=== PATIENT | male | born 1950 | race African-American/Black ===

== ENCOUNTER 2020-07-07 10:55 | Inpatient (IN) | payer OTHER ==
[2020-07-05 23:30] VITALS: BP 107/90
[~2020-07-07] VITALS: Ht 182.9 cm; Wt 110.7 kg
[2020-07-07] VITALS (8 sets, daily range): BP systolic 108–140; BP diastolic 71–87
--- NOTE | ~2020-07-07 | EEG ---
[facility] [place] [address] [place] [address] ELECTROENCEPHALOGRAM Name: CHRISTIN MORGAN Room #: 243-P [facility] IN M.R.#: [id number] Admission: 07/07/20 Attend Phys: Pablito Granda MD Discharge: Date of : 52 Report #: [id number] THIS REPORT FOR: //name// CC: STEPHENIE physician/PCP Pablito Granda DATE OF SERVICE: 07/12/2020 FINDINGS: This patient is being evaluated for cardiac arrest. EEG was done by placing the electrode by standard 10-20 system of electrode placement. Both referential and sequential montages were used for recording. Background activity is low voltage and very poorly formed. This is probably 4-5 and less than 10 microvolts. A lot of artifact is present. Photic stimulation is unremarkable. Throughout the record, no active epileptiform activity was noticed. IMPRESSION: This is a severely abnormal EEG, which will be consistent with a diagnosis of encephalopathy. However, the EEG was done when the patient was on sedation, it will be desirable to do an EEG without sedation if the patient can be taken off sedation. Thank you very much for this referral. By: 1806 26 Matt Hill MD /nt
--- NOTE | ~2020-07-07 | EEG ---
[facility] [place] [address] [place] [address] ELECTROENCEPHALOGRAM Name: CHRISTIN MORGAN Room #: 243-P [facility] IN M.R.#: [id number] Admission: 07/07/20 Attend Phys: Pablito Granda MD Discharge: Date of : 52 Report #: [id number] THIS REPORT FOR: //name// CC: STEPHENIE physician/PCP Pablito Granda DATE OF SERVICE: 07/10/2020 This patient is being evaluated for cardiac arrest. EEG was done by placing the electrodes by standard 10-20 system of electrode placement. Both referential and sequential montages were used for recording. Background activity in this patient's EEG was difficult to determine initially. It was masked by a lot of artifact. Subsequently, paralyzing agent was given and sedation was stopped. At that time, the background activity appeared to be showing about 5-6 Hz and 15 microvolt. Activity is present, but is very slow. Photic stimulation is unremarkable. No active epileptiform activity was noticed. IMPRESSION: This is a severely abnormal EEG, which would be consistent with a diagnosis of encephalopathy. No active epileptiform activity was noticed. This patient will need serial EEGs to prognosticate this patient. Clinical correlation is recommended. Thank you very much for this referral. By: 11 22 Matt Hill MD /nt
--- NOTE | 2020-07-07 11:00 | NUR ---
STAFF PRESENT FOR CODE-MARY AILCE ADAMSON-BEAN SPROUT GROWER JEFFREY RN JAZMYNE RT MALA RT JAQUELIN EMT DR CHIKIS LUCIA
[2020-07-07 11:24] LABS: HEMATOCRIT 41.6 % (42.0-52.0); HEMOGLOBIN 13.1 gm/dL (14.0-18.0); MCH 27.2 pg (26.0-34.0); MCHC 31.4 g/dL (28.0-37.0); MCV 86.7 fL (80.0-100.0); PLATELET COUNT 252 thou/uL (150-400); RDW 13.6 % (10.5-14.5); WBC 21.3 thou/uL (4.0-11.0)
[2020-07-07 11:24] LABS: BE(vivo) -14.9 mmol/L (-2 to +3); HCO3 12.8 mmol/L (22.0-26.0); PCO2 36.3 mmHg (35.0-45.0); PO2 396.7 mmHg (80.0-100.0); sO2 99.7 % (92.0-98.0)
[2020-07-07 11:26] LABS: pH 7.164 (7.360-7.450)
--- NOTE | 2020-07-07 11:49 | NUR ---
CARDIOLOGY IN AND PT TAKEN FROM CT TO POACHER OPERATOR. REPORT GIVEN TO UCHE AUGUST
[2020-07-07 12:03] LABS: APTT 30.8 Seconds (24.5-32.8); CALCIUM 8.3 mg/dL (8.5-10.1); CREATININE 2.3 mg/dL (0.7-1.3); INR 1.1; POTASSIUM 3.8 mmol/L (3.5-5.1); PROTIME 11.3 Seconds (9.3-11.4)
[2020-07-07 12:14] LABS: ALBUMIN 3.5 g/dL (3.4-5.0); DIRECT BILIRUBIN 0.1 mg/dL (<0.1-0.2); TOTAL BILIRUBIN 0.4 mg/dL (0.2-1.0); TOTAL PROTEIN 7.5 g/dL (6.4-8.2)
[2020-07-07 12:15] LABS: TROPONIN-I 3.63 ng/mL (<0.06)
[2020-07-07 12:25] LABS: ABSOLUTE NEUTROPHILS 12.4 thou/uL (1.4-8.2); PLATELET ESTIMATE NORMAL
--- NOTE | 2020-07-07 13:11 | HC ---
[facility] [address] [place] [address] CONSULTATION Name: MALA WALLER Room #: 160-1 ADM IN M.R.#: [id number] Admission: 07/07/20 Attend Phys: Pablito Granda MD Discharge: Date of : 52 Report #: [id number] THIS REPORT FOR: cc: FAM - No family physician/PCP FAM - No family physician/PCP Adalberto Garcia MD ~ DATE OF SERVICE: 07/07/2020 HISTORY OF PRESENT ILLNESS: History is obtained from the Emergency Room physician and from family. Apparently, a 70-year-old gentleman who denies any prior history of coronary artery disease, injured his back on Thursday, was at work. He did not feel well at work and presented home where the family heard a large sound and found him unresponsive, face down. When they rolled him over, they stated "his eyes were out." The patient's family began CPR and EMS arrived and found him in a fine ventricular fibrillation and he was shocked x 2. He subsequently was administered a subsequent shock when V-tach was obtained and he was in PEA without spontaneous respiration. CPR continued throughout transfer and presented to the Emergency Room where ACLS protocol ensued. Prior to his presentation to the Emergency Room, had a total of 7 doses of intravenous IV push epinephrine. Continued resuscitation was obtained and a pressure was established in the Emergency Room. Consultation was obtained when ECG demonstrated what appears to be diffuse anterolateral wall ST-segment elevation with tombstoning on ECG. Upon examination, the patient is intubated on propofol, unresponsive and having significant twitching, suggestive of seizure activity. PAST MEDICAL HISTORY: Unremarkable except for the back injury previously stated. ALLERGIES: No known drug allergies. PAST SURGICAL HISTORY: Reviewed from family noncontributory. Electrocardiogram: Sinus tachycardia, diffuse ST-segment elevation in the anterolateral leads. Laboratory noted acidotic on presentation, being optimized and treated by ER physician. Remaining laboratories are pending. REVIEW OF SYSTEMS: Not obtainable. PHYSICAL EXAMINATION: GENERAL: Well-developed male who is in extremis, intubated and having [facility] [address] [place] [address] CONSULTATION Name: MALA WALLER Room #: 160-1 ADM IN M.R.#: [id number] Admission: 07/07/20 Attend Phys: Pablito Granda MD Discharge: Date of : 52 Report #: [id number] seizure-like activity. LUNGS: Bilaterally clear. CARDIAC: Regular. No murmurs or rubs noted. EXTREMITIES: Without edema. IMPRESSION: Sudden cardiac , etiology likely arrhythmic in nature with acute myocardial infarction in present ECG. Discussed with the family and spouse the high likelihood of poor outcomes for which the patient's family stated "will do everything we need to do." The risks, complications and alternatives were discussed once again. Proceeding to the cath lab radiological technologist for emergent catheterization to determine whether there is any coronary vascular etiology that can be treated. <ELECTRONICALLY SIGNED> By: Adalberto Garcia MD 07/07/20 1311 1137 1205 Adalberto Garcia MD /nt
--- NOTE | 2020-07-07 15:30 | NUR ---
PATIENT ARRIVED TO THE UNIT FROM DISEASE EDUCATION SPECIALIST AT 1317. GROIN SITE IN TACT, SOFT NO DRAINAGE. PATIENT ON ANGIOMAX. RT AT BEDSIDE WITH 2 RN. PATIENT TRANSFERRED TO ICU BED. VS WNL AT THIS TIME. HYPOTHERMIA STARTED AT 1345. AT 1500, AT WINDOW. RN EXPLAINING TO HER POC. JESSI FLORES, GIVING HER THE CODE TO ACCESS THE PATIENTS'S INFORMATION. AT 1530, DR. ALMENDAREZ AT THE BEDSIDE. NO NEW ORDERS OF NOW. JESSI RODRIGUEZ NURSE AT BEDSIDE PLACEING CENTRAL LINE MEDICAL NECESSITY TO BE SIGNED PER DR. PYLE.
[2020-07-07 15:55] LABS: BE(vivo) -4.7 mmol/L (-2 to +3); HCO3 18.9 mmol/L (22.0-26.0); PCO2 31.5 mmHg (35.0-45.0); PO2 249.6 mmHg (80.0-100.0); pH 7.397 (7.360-7.450); sO2 99.6 % (92.0-98.0)
--- NOTE | 2020-07-07 17:30 | NUR ---
CONSULTED TO PLACE A STAT CENTRAL LINE FOR A PATIENT POST CODE. ORDER NOTED AND CONSENT PER MEDICAL NECESSITY/DR. PYLE. THE RIGHT JUGULAR WAS WIDLEY PATENT. A #6F TRIPLE LUMEN CENTRAL LINE WAS PLACED. LINE WAS 25CM AND ADVANCED WITHOUT DIFFICULTY. A STAT CHEST XRAY CONFIRMED THE LINE IN GOOD POSITION FOR USE
[2020-07-07 17:32] LABS: ABSOLUTE NEUTROPHILS 15.1 thou/uL (1.4-8.2); EOSINOPHILS 0.1 % (0.0-3.0); HEMATOCRIT 40.3 % (42.0-52.0); HEMOGLOBIN 13.1 gm/dL (14.0-18.0); LYMPHOCYTES 5.3 % (24.0-44.0); MCH 27.5 pg (26.0-34.0); MCHC 32.4 g/dL (28.0-37.0); MCV 84.9 fL (80.0-100.0); MONOCYTES 8.3 % (1.0-8.0); PLATELET COUNT 287 thou/uL (150-400); POLYS 86.3 % (36.0-66.0); RBC 4.75 mil/uL (4.50-6.00); RDW 13.3 % (10.5-14.5); WBC 17.5 thou/uL (4.0-11.0)
[2020-07-07 17:42] LABS: FIBRINOGEN 339.7 mg/dL (210-360)
[2020-07-07 17:50] LABS: D-DIMER 31.03 ug/mLFEU (0.19-0.50)
[2020-07-07 17:57] LABS: CALCIUM 8.3 mg/dL (8.5-10.1); CREATININE 2.2 mg/dL (0.7-1.3); MAGNESIUM 2.3 mg/dL (1.8-2.4); POTASSIUM 4.2 mmol/L (3.5-5.1)
[2020-07-07 17:59] LABS: TROPONIN-I 53.97 ng/mL (<0.06)
[2020-07-08] VITALS (32 sets, daily range): BP systolic 91–144; BP diastolic 30–90
[2020-07-08 00:45] LABS: ABSOLUTE NEUTROPHILS 13.7 thou/uL (1.4-8.2); BASOPHILS 0.1 % (0.0-2.0); HEMATOCRIT 38.2 % (42.0-52.0); HEMOGLOBIN 12.3 gm/dL (14.0-18.0); LYMPHOCYTES 9.1 % (24.0-44.0); MCH 27.3 pg (26.0-34.0); MCHC 32.2 g/dL (28.0-37.0); MCV 84.8 fL (80.0-100.0); MONOCYTES 7.9 % (1.0-8.0); PLATELET COUNT 272 thou/uL (150-400); POLYS 82.9 % (36.0-66.0); WBC 16.5 thou/uL (4.0-11.0)
[2020-07-08 01:11] LABS: CALCIUM 6.4 mg/dL (8.5-10.1); CREATININE 1.4 mg/dL (0.7-1.3); MAGNESIUM 2.8 mg/dL (1.8-2.4)
[2020-07-08 01:13] LABS: POTASSIUM 2.8 mmol/L (3.5-5.1); TROPONIN-I 66.57 ng/mL (<0.06)
[2020-07-08 04:57] LABS: BE(vivo) -7.7 mmol/L (-2 to +3); HCO3 16.3 mmol/L (22.0-26.0); PCO2 29.6 mmHg (35.0-45.0); PO2 292.5 mmHg (80.0-100.0); sO2 99.7 % (92.0-98.0)
[2020-07-08 07:02] LABS: ABSOLUTE NEUTROPHILS 9.3 thou/uL (1.4-8.2); BASOPHILS 0.1 % (0.0-2.0); HEMATOCRIT 37.9 % (42.0-52.0); HEMOGLOBIN 12.1 gm/dL (14.0-18.0); LYMPHOCYTES 13.5 % (24.0-44.0); MCH 27.1 pg (26.0-34.0); MCHC 31.9 g/dL (28.0-37.0); MONOCYTES 5.4 % (1.0-8.0); PLATELET COUNT 252 thou/uL (150-400); RBC 4.47 mil/uL (4.50-6.00); RDW 13.6 % (10.5-14.5); WBC 11.4 thou/uL (4.0-11.0)
[2020-07-08 07:08] LABS: CALCIUM 7.8 mg/dL (8.5-10.1); CREATININE 1.5 mg/dL (0.7-1.3); POTASSIUM 3.9 mmol/L (3.5-5.1)
[2020-07-08 07:16] LABS: ALBUMIN 3.1 g/dL (3.4-5.0); CHOLESTEROL 155 mg/dL (<200); HDL CHOLESTEROL 33 mg/dL (>40); LDL CHOLESTEROL 91 mg/dL (<100); TC:HDL 4.7 Ratio (Not establshd); TOTAL BILIRUBIN 0.2 mg/dL (0.2-1.0); TOTAL PROTEIN 6.5 g/dL (6.4-8.2); TRIGLYCERIDE 155 mg/dL (<150); VLDL 31 mg/dL (<40)
[2020-07-08 07:22] LABS: MAGNESIUM 1.9 mg/dL (1.8-2.4)
[2020-07-08 08:08] LABS: TROPONIN-I 50.1 ng/mL (<0.06)
--- NOTE | 2020-07-08 09:50 | NUR ---
NEUROLOGIST AT BEDSIDE AROUND 0815 THIS MORNING. ASSESSMENT DONE, NO NEW ORDERS AT THIS TIME. AT 0949, KIMBERLEY, PATIENT;S SISTER CALLING TO GET AN UPDATED. CODE VERIFIED. SISTER UPDATED ADBOUT PATIENT CURRENT STATUS AND POC.
[2020-07-08 14:40] LABS: ABSOLUTE NEUTROPHILS 8.6 thou/uL (1.4-8.2); BASOPHILS 0.1 % (0.0-2.0); HEMATOCRIT 38.8 % (42.0-52.0); HEMOGLOBIN 12.6 gm/dL (14.0-18.0); LYMPHOCYTES 10.3 % (24.0-44.0); MCH 27.7 pg (26.0-34.0); MCHC 32.4 g/dL (28.0-37.0); MCV 85.3 fL (80.0-100.0); MONOCYTES 7.3 % (1.0-8.0); PLATELET COUNT 249 thou/uL (150-400); POLYS 82.3 % (36.0-66.0); RBC 4.55 mil/uL (4.50-6.00); RDW 13.3 % (10.5-14.5); WBC 10.5 thou/uL (4.0-11.0)
[2020-07-08 14:57] LABS: CALCIUM 8.1 mg/dL (8.5-10.1); CREATININE 1.4 mg/dL (0.7-1.3); MAGNESIUM 2.9 mg/dL (1.8-2.4); POTASSIUM 3.1 mmol/L (3.5-5.1)
[2020-07-08 15:22] LABS: TROPONIN-I 77.54 ng/mL (<0.06)
[2020-07-09] VITALS (84 sets, daily range): BP systolic 89–149; BP diastolic 48–108
[2020-07-09 03:31] LABS: BE(vivo) -8.9 mmol/L (-2 to +3); HCO3 16.8 mmol/L (22.0-26.0); PCO2 35.9 mmHg (35.0-45.0); PO2 142.9 mmHg (80.0-100.0); pH 7.289 (7.360-7.450); sO2 98.6 % (92.0-98.0)
[2020-07-09 06:28] LABS: HEMOGLOBIN 11.9 gm/dL (14.0-18.0); MCH 27.8 pg (26.0-34.0); MCHC 32.9 g/dL (28.0-37.0); MCV 84.5 fL (80.0-100.0); RBC 4.26 mil/uL (4.50-6.00); RDW 13.4 % (10.5-14.5)
[2020-07-09 06:37] LABS: CALCIUM 7.6 mg/dL (8.5-10.1); CREATININE 1.2 mg/dL (0.7-1.3)
[2020-07-09 06:40] LABS: POTASSIUM 4.3 mmol/L (3.5-5.1)
--- NOTE | 2020-07-09 07:36 | EKG ---
[facility] [address] [place] [address] ELECTROCARDIOGRAM REPORT Name: CHRISTIN MORGAN MALA Room #: 243-P ADM IN M.R.#: [id number] Admission: 07/07/20 Attend Phys: Pablito Granda MD Discharge: Date of : 52 Report #: [id number] THIS REPORT FOR: cc: STEPHENIE - No family physician/PCP FAM - No family physician/PCP Yomi Eng MD [facility] ~ THIS REPORT FOR: //name// [facility] Test Date: 2020-07-08 Test Time: 17:35:41 Pat Name: CHRISTIN MORGAN Department: Room: 243 P Gender: M Travel Freight And Passenger Agent: MADHU : 1950 Requested By: Adalberto Garcia Order Number: [id number] MD: Yomi Eng Measurements Intervals [place] Rate: 101 P: 52 CO: 144 QRS: -3 QRSD: 106 T: 71 QT: 394 QTc: 511 Interpretive Statements Sinus tachycardia Anterolateral infarct, acute (LAD) Prolonged QT interval Compared to ECG 07/07/2020 11:06:36 Prolonged QT interval now present Myocardial infarct finding still present Electronically Signed On 07-09-2020 7:35:54 REPORTING DEVELOPER by Yomi Eng [email or web address] <ELECTRONICALLY SIGNED> By: Yomi Eng MD, FACC 07/09/20 0735 1735 1735 Yomi Eng MD, FACC /EPI
--- NOTE | 2020-07-09 08:22 | EKG ---
[facility] [address] [place] [address] ELECTROCARDIOGRAM REPORT Name: CHRISTIN MORGAN Room #: 243-P ADM IN M.R.#: [id number] Admission: 07/07/20 Attend Phys: Pablito Granda MD Discharge: Date of : 51 Report #: [id number] THIS REPORT FOR: cc: FAM - No family physician/PCP FAM - No family physician/PCP Eris Aquino MD [facility] ~ THIS REPORT FOR: //name// [facility] ED Test Date: 2020-07-07 Test Time: 11:06:36 Pat Name: CHRISTIN MORGAN Department: Room: 243 Gender: M Production Operations Inspector: MARIAN : 1950 Requested By: Niall Gonzalez Order Number: [id number] MD: Eris Aquino Measurements Intervals [place] Rate: 115 P: 89 MA: 108 QRS: -33 QRSD: 102 T: -29 QT: 324 QTc: 448 Interpretive Statements Sinus tachycardia Probable left atrial enlargement Anterolateral infarct, acute (LAD) No previous ECG available for comparison Electronically Signed On 07-09-2020 8:22:12 CENTRAL SUPPLY CLERK by Eris Aquino [email or web address] <ELECTRONICALLY SIGNED> By: Eris Aquino MD, [facility] 07/09/20 0822 1106 1106 Eris Aquino MD, [facility] /EPI
--- NOTE | 2020-07-09 11:15 | 2DMMODE ---
[facility] [place] [address] 2 D/M-MODE ECHOCARDIOGRAM Name: CHRISTIN MORGAN Room #: 243-P ADM IN M.R.#: [id number] Admission: 07/07/20 Attend Phys: Pablito Granda MD Discharge: Date of : 52 Report #: [id number] THIS REPORT FOR: cc: FAM - No family physician/PCP FAM - No family physician/PCP Yomi Eng MD [facility] ~ APPROVED REPORT Study performed: 07/09/2020 10:31:37 EXAM: Comprehensive 2D, Doppler, and color-flow Echocardiogram Patient Location: ER Room #: 243 Status: routine BSA: 2.34 HR: 118 bpm BP: 114/65 mmHg Rhythm: Tachycardia Other Information Study Quality: Fair/poor parasternal windows Technically limited study due to patient on vent, no mobility, warming system on. Indications STEMI status post PCI. Vtach/Code. 2D Dimensions RVDd: 39.49 mm IVSd: 12.56 (7-11mm) LVDd: 50.07 mm PWd: 10.25 (7-11mm) LVDs: 40.55 (25-40mm) Volumes Left Atrial Volume (Systole) Single Plane 4CH: 36.52 mL Single Plane 2CH: 40.97 mL Aortic Valve AoV Peak Don.: 1.24 m/s AO Peak Gr.: 6.16 mmHg LVOT Max P.22 mmHg LVOT Max V: 0.90 m/s Mitral Valve [facility] [address] [address] 2 D/M-MODE ECHOCARDIOGRAM Name: CHRISTIN MORGAN MALA Room #: 243-P [facility] IN .R.#: [id number] Admission: 07/07/20 Attend Phys: Pablito Granda, Discharge: Date of : 52 Report #: [id number] MV Decel. Time: 83.81 ms MV E Max Don.: 0.94 m/s Tricuspid Valve TR Peak Don.: 2.30 m/s RAP Estimate: 15.00 mmHg TR Peak Gr.: 21.16 mmHg PA Pressure: 36.00 mmHg Left Ventricle The left ventricle is normal size. Mild concentric left ventricular hypertrophy. Left ventricular systolic function is severely decreased. LVEF is 25-30%. This study is not technically sufficient to allow evaluation of the LV diastolic function. Right Ventricle The right ventricle is normal size. The right ventricular systolic function is low normal. Atria The left atrium size is normal. The right atrium size is normal. Aortic Valve The aortic valve is not well visualized. No aortic regurgitation is present. There is no aortic valvular stenosis. Mitral Valve The mitral valve is normal in structure. Trace mitral regurgitation. No evidence of mitral valve stenosis. Tricuspid Valve The tricuspid valve is normal in structure. Trace tricuspid regurgitation. Estimated PAP is 35mmHg. Great Vessels Aortic root is not well visualized. IVC is dilated and collapses <50% with inspiration. Pericardium There is no pericardial effusion. <Conclusion> Normal left atrial size as well as wall thickness Global hypokinesis more prominent in the anterior wall, ejection fraction -25% Normal right ventricular size, low normal RV systolic [facility] [address] [place] [address] 2 D/M-MODE ECHOCARDIOGRAM Name: EDDIECHRISTINSABINA MEDEIROS Room #: 243-P [facility] IN [facility]#: [id number] Admission: 07/07/20 Attend Phys: Pablito Granda, Discharge: Date of : 52 Report #: [id number] Normal atrial size Normal aortic/mitral valve structure and function Trace of tricuspid valve insufficiency, PA pressure systolic estimated 35 mmHg No evidence of pericardial effusion <ELECTRONICALLY SIGNED> By: Yomi Eng MD, FACC 07/09/204 13 13 Yomi Eng MD, FACC /INF
--- NOTE | 2020-07-09 14:31 | NUR ---
chart review. unable to visit with taras umana on vent. noted and sister has been updated by bedside nurse. will cont following as needed for dc needs.
--- NOTE | 2020-07-09 20:10 | NUR ---
Spoke with granddaugther and today, updated them on patient condition. He has warmed and sedation titration was started, but he began to seize. ATivan 2 mg given with good results and Dr. Hill notified.
[2020-07-10] VITALS (79 sets, daily range): BP systolic 94–157; BP diastolic 52–95
[2020-07-10 01:25] LABS: URINE BILIRUBIN NEGATIVE (Negative); URINE BLOOD 3+ (Negative); URINE CLARITY SL CLOUDY; URINE COLOR YELLOW; URINE GLUCOSE-RANDOM* NEGATIVE (Negative); URINE KETONES NEGATIVE (Negative); URINE LEUKOCYTES-REFLEX NEGATIVE (Negative); URINE PROTEIN (DIPSTICK) TRACE (Negative); URINE SPECIFIC GRAVITY >= 1.030 (1.005-1.035); URINE UROBILINOGEN 0.2 E.U./dl (0.2-1.0)
[2020-07-10 01:44] LABS: URINE NITRITE-REFLEX POSITIVE (Negative)
[2020-07-10 01:47] LABS: BACTERIA-REFLEX >30 Many /HPF (None Seen); CELLULAR CASTS 0-3 Few /LPF (None Seen); MUCUS 4-6 Moderate strn/LPF (None Seen); SQUAMOUS 0-3 Few /LPF (0-3); URINE RBC 3-10 Few /HPF (0-2); URINE WBC-REFLEX 0-5 Rare /HPF (0-5)
[2020-07-10 01:48] LABS: URIC ACID CRYSTALS >10 Many /LPF (None Seen)
[2020-07-10 04:37] LABS: BE(vivo) -1.1 mmol/L (-2 to +3); HCO3 23.1 mmol/L (22.0-26.0); PCO2 36.8 mmHg (35.0-45.0); PO2 103.6 mmHg (80.0-100.0); pH 7.416 (7.360-7.450); sO2 97.8 % (92.0-98.0)
[2020-07-10 04:58] LABS: BASOPHILS 0.1 % (0.0-2.0); EOSINOPHILS 0.1 % (0.0-3.0); HEMOGLOBIN 10.9 gm/dL (14.0-18.0); LYMPHOCYTES 17.4 % (24.0-44.0); MCH 27.8 pg (26.0-34.0); MCV 84.3 fL (80.0-100.0); MONOCYTES 4.2 % (1.0-8.0); PLATELET COUNT 191 thou/uL (150-400); POLYS 78.2 % (36.0-66.0); RBC 3.91 mil/uL (4.50-6.00); RDW 13.7 % (10.5-14.5); WBC 6.4 thou/uL (4.0-11.0)
[2020-07-10 05:29] LABS: ALBUMIN 2.4 g/dL (3.4-5.0); CALCIUM 7.6 mg/dL (8.5-10.1); CREATININE 1.1 mg/dL (0.7-1.3); POTASSIUM 4.1 mmol/L (3.5-5.1); TOTAL BILIRUBIN 0.4 mg/dL (0.2-1.0); TOTAL PROTEIN 6.1 g/dL (6.4-8.2)
--- NOTE | 2020-07-10 05:32 | NUR ---
ASSUMED CARE 1900. PT MAINTAINED ON VERSED, FENTANYL, PROPOFOL, LEVOPHED, AND NS DRIPS. ARCTIC SUN IN PLACE, OVERNIGHT BODY TEMPS 36-37 DEG C FROM URINARY CATHETER AND RECTAL PROBES. SPOKE W/ PT'S , UPDATED HER ABOUT SEIZURE ACTIVITY ON DAY SHIFT; TEARFUL, SAID SHE WOULD ASK HER ORDER TAKERS SUPERVISOR TO CALL/GIVE HER THE CODE SO SHE COULD TALK WITH STAFF ABOUT PT CONDITION THEN EXPLAIN IT BACK TO WHILE HELPING KEEP HER CALM. SMALL CLOTS AND SEDIMENT BUILT UP IN MATIAS LINE, FLUSHED OUT WELL WITH 150 ML SALINE AND WASTED SAME AMOUNT OF URINE. WILL CONTINUE TO MONITOR.
--- NOTE | 2020-07-10 14:30 | NUR ---
AND SISTER UPDATED ON PT CONDITION THIS AM. DR. ALMENDAREZ TALKED TO GARY ABOUT PT NEUROLOGICAL CONDITION TODAY.
[2020-07-11] VITALS (71 sets, daily range): BP systolic 81–149; BP diastolic 45–87
[2020-07-11 04:13] LABS: BE(vivo) -1.3 mmol/L (-2 to +3); HCO3 23.5 mmol/L (22.0-26.0); PCO2 39.6 mmHg (35.0-45.0); pH 7.391 (7.360-7.450); sO2 95.2 % (92.0-98.0)
[2020-07-11 06:48] LABS: ALBUMIN 2.1 g/dL (3.4-5.0); CALCIUM 7.3 mg/dL (8.5-10.1); CREATININE 1.2 mg/dL (0.7-1.3); POTASSIUM 4.5 mmol/L (3.5-5.1); TOTAL BILIRUBIN 0.8 mg/dL (0.2-1.0); TOTAL PROTEIN 5.1 g/dL (6.4-8.2)
--- NOTE | 2020-07-11 09:26 | NUR ---
PT NOW NORMOTHERMIC, NO COUGH/GAG, NO MOVEMENTS NOTED. DC VERSED. AMD LOWER FENTANYL.CONT PLAN OF CARE. NOT PROGRESSING TOWARD GOALS. MRI PLANNED SUDHAKAR STABLE
[2020-07-11 12:43] LABS: HEMATOCRIT 29.5 % (42.0-52.0); HEMOGLOBIN 9.6 gm/dL (14.0-18.0); MCH 27.8 pg (26.0-34.0); MCHC 32.6 g/dL (28.0-37.0); MCV 85.2 fL (80.0-100.0); PLATELET COUNT 174 thou/uL (150-400); RBC 3.47 mil/uL (4.50-6.00); RDW 14.3 % (10.5-14.5)
--- NOTE | 2020-07-11 12:51 | NUR ---
ASSUMED CARE OF PATIENT AT 0600. PATIENT ON MINIMAL VENTILATOR SETTINGS WHILE ON MY SHIFT. NO SIGNS OF DISTRESS ARE NOTED AT THIS TIME. THE PATIENT DOES HAVE A COUGH AND GAG. A MODERATE AMOUNT OF SECRETIONS ARE BEING SUCTIONED FROM THE PATIENT.
[2020-07-11 14:10] LABS: ABSOLUTE NEUTROPHILS 3.3 thou/uL (1.4-8.2); PLATELET ESTIMATE NORMAL
--- NOTE | 2020-07-11 18:45 | NUR ---
NO GAG, NO CORNEAL, PUPILS SEVERLY SLUGGISH TO NON REACTION, NO WITHDRAWAL TO PAINFUL STIMULI. FENTANYL TITRATED DOWN FROM 75 MCG TO STANDBY AT 1800, NO SEIZURE ACTIVITY NOTES. FIO2 .30, PEEP 5. LEVOPHED AT 11MCG. THIS RN SPOKE WITH TWICE AND SISTER ONCE TODAY. DR. MOE SPOKE WITH THIS EVENING AND SAID WHEN WE GET SEDATION OFF, WILL REPEAT EEG AND GET MRI.
--- NOTE | 2020-07-11 23:37 | CATHLAB ---
[facility] [place] [address] [place] [address] INVASIVE PROCEDURE REPORT Name: CHRISTIN MORGAN Room #: 243-P ADM IN M.R.#: [id number] Admission: 07/07/20 Attend Phys: Pablito Granda MD Discharge: Date of : 52 Report #: [id number] THIS REPORT FOR: cc: FAM - No family physician/PCP FAM - No family physician/PCP Adalberto Garcia MD ~ APPROVED REPORT Study performed: 07/07/2020 12:00:07 Patient Details Patient Status: In-Patient Room #: The patient is a 70 year-old male Event Personnel Adalberto Garcia Piece Worker, Gloria Joya RN RN, Massiel Warren Monitor, Luz Smith RTR Scrub Procedures Performed Art Access - R femoral artery* Left Heart Cath w/or w/o Coronaries [id number] [facility] JOSE M Revasc AMI Total/Sub Single LAD C9606 AMIREVSING Hemostasis w/ Mynx, supervision of conscious sedation Indication STEMI (>0 to less than or equal to 6 hours) Procedure Narrative The patient was brought emergently to the Cardiac Catheterization Laboratory and was prepped and draped in a sterile manner. The Right Groin^ was infiltrated with 1% Lidocaine subcutaneous anesthesia. A PINNACLE 6FR Sheath #[id number] sheath was inserted into the RFA^. Coronary angiography was performed using coronary diagnostic catheters. The right coronary system was accessed and visualized with a JR 4 catheter. The left coronary system was accessed and visualized with a LAUNCHER 6FR JL4 #[id number] catheter. Closure device was deployed with a 6 Fr Mynx. The patient tolerated the procedure well and there were no complications associated with the procedure. There was no hematoma. Fluoro Time: 8.42 minutes Dose: DAP 6919.00 cGycm2 1017 mGy Contrast Type and Amount: Visipaque 170 ml [facility] [address] INVASIVE PROCEDURE REPORT Name: CHRISTIN MORGAN Room #: 243-P [facility]#: [id number] Admission: 07/07/20 Attend Phys: Pablito Granda, Discharge: Date of : 52 Report #: [id number] Coronary Angiography The patient's coronary anatomy is right dominant. Diagnostic Cath Left Main Large caliber vessel of normal origin bifurcates into a LAD and LCX arteries. The LM has luminal irregularities but no significant high grade lesions. LAD Moderate to large caliber vessel with a 30% concentric proximal lesion after which a small first diagonal vessel arises. The LAD proper is then totally occluded with LUIS 0 flow. Post dilatation and stenting of the proximal mid LAD the vessel is a Type II vessel with essentially no significant lesions Diagonal 1 small caliber vessel coursing along the anterolateral wall with a concentric 50% lesion in its mid portion. This is not flow limiting. Diagonal 2 small insignificant caliber vessel arising from the center of involved LAD and with a 50% ostial lesion Circumflex Moderate to large caliber vessel giving rise to several marginal branches as it courses posteriorly to terminate as small posterior wall marginal vessels OM1 moderate caliber vessel coursing laterally and rapidly tapering with no highgrade lesions but luminal irregularities. OM2 small caliber vessel OM3 moderate to large caliber posterior wall vessel without significant lesions noted Right Coronary Moderate caliber vessel of normal origin with mild luminal irregulatities noted until the acute margin where ther is a concentric lesion of 60-70% without flow limitation. The RCA continues after giving rise to smal RV branches to the crux of the heart whe a small to moderate caliber PDA originates with only mild plaqueing noted The RCA then terminates as a small insignificant posterior wall vessel. R PDA small caliber vessel without highgrade obstructive lesions. Left Ventriculography Left Ventriculography was not performed. Hemodynamics The aortic pressure is 104/69 mmHg with a mean of 83 mmHg. PCI Technique In view of the presentation and ECG findings a 6 upper sor[address] system was in place. A JL4 guide was utilized to image the vessel and proceed directly to PCI. 0.014 floppy tipped wire was advanced beyond the [facility] [address] [place] [address] INVASIVE PROCEDURE REPORT Name: CHRISTIN MORGAN Room #: 243-P [facility] IN M.R.#: [id number] Admission: 07/07/20 Attend Phys: Pablito Granda, Discharge: Date of : 52 Report #: [id number] occluded portion but unable to advance distally. a 3-0 PCI ballon was then loaded and advanced where multiple inflations were obtained to estalish flow. Subsequently the wire was repositioned into the distal LAD. The pci balloon was exchanged for the stent balloon and subsequent deployment ensued. Utilizinf the same balloon post deployment dilations were performed to taper the stent to the vessel taper. No loss od side branch, distal embolization or intraluminal disruptions noted. LUIS 3 flow present post procedure. No complications. The patient was sedated and ventillated throughout the procedure. Transfer to the ICU for post stent care and Hypothermia protocol. PCI Technique Lesion Percutaneous coronary intervention was performed on the proximal left anterior descending artery segment. A LAUNCHER 6FR JL4 #[id number] Guide Catheter was used to engage the ostium. A Luge Wire .014 x 182CM #[id number] Interventional Guidewire was used to cross the lesion. BALLOON DILATION A Balloon catheter Euphora RX 3.0 x 12 #[id number] was inserted and inflated up to 10.00atm for 21seconds. Additional Inflation: 8.00atm for 10seconds. Additional Inflation: 18.00atm for 15seconds. STENT DEPLOYMENT A drug-eluting stent RESOLUTE PRATEEK RX 3.5 X 18 #[id number] was inserted and inflated up to 12.00atm for 10seconds. Additional Inflation: 16.00atm for 10seconds. Conclusion 1. Coronary artery disease severe consisting of a 60-70% proximal -mid RCA and a toally occluded proximal mid LAD 2. Successful Percutaneous revascularization with PCI/Stent utilizing JOSE M [employer] stent 3. Stable Hemodynamics 4.Hypoxic encephalopathy with seizure activity preprocedure on medications per ER/Primary physicians Recommendations Daily ASA with Plavix for at least one year Medical Therapy [address] [address] INVASIVE PROCEDURE REPORT Name: CHRISTIN MORGAN Room #: 243-P ADM IN M.R.#: [id number] Admission: 07/07/20 Attend Phys: Pablito Granda, Discharge: Date of : 52 Report #: [id number] plavix to be given upon arrival to icu through OG tube ( not present in ccl ) and before bivilirubin infusion completes <ELECTRONICALLY SIGNED> By: Adalberto Garcia MD 07/11/202336 Myrtle 36 Adalberto Garcia MD /INF
[2020-07-12] VITALS (52 sets, daily range): BP systolic 99–160; BP diastolic 61–94
--- NOTE | 2020-07-12 01:48 | NUR ---
assumed care at change of shift, assessments as charted, sr/st on the monitor, at 2250 updated about the patient, asking about brain ,told as per drs note more time needed and repeat eeg and ct or mri tomorrow, noted no urine output dayron lares, flushed the lares with no success, bladder scanned with 739 residual, lares catheter changed with an output of 800cc, bs stable at 99, vss, pus like secretion noted from the right nares, suctioned, will continue to monitor
[2020-07-12 05:08] LABS: BE(vivo) -3.3 mmol/L (-2 to +3); HCO3 21.6 mmol/L (22.0-26.0); PCO2 38.1 mmHg (35.0-45.0); PO2 66.8 mmHg (80.0-100.0); pH 7.371 (7.360-7.450); sO2 92.9 % (92.0-98.0)
[2020-07-12 05:58] LABS: HEMOGLOBIN 10.2 gm/dL (14.0-18.0); MCH 27.8 pg (26.0-34.0); MCHC 32.9 g/dL (28.0-37.0); MCV 84.5 fL (80.0-100.0); PLATELET COUNT 201 thou/uL (150-400); RBC 3.67 mil/uL (4.50-6.00); RDW 14.3 % (10.5-14.5)
[2020-07-12 06:25] LABS: ALBUMIN 1.9 g/dL (3.4-5.0); CREATININE 1.3 mg/dL (0.7-1.3); POTASSIUM 4.6 mmol/L (3.5-5.1); TOTAL BILIRUBIN 0.9 mg/dL (0.2-1.0); TOTAL PROTEIN 6.1 g/dL (6.4-8.2)
[2020-07-12 09:14] LABS: METAMYELOCYTES 1 %; MYELOCYTES 1 %
[2020-07-12 09:15] LABS: ANISOCYTOSIS 1+
--- NOTE | 2020-07-12 19:14 | NUR ---
ASSUMED CARE OF PT AT 0700, PT IS A GCS OF 3. CONT ON SEDATION WITH FENT AND PROPOFO FOR VENT MANAGEMENT. PT VSS. PT HAS BEEN FEBRILE ANDHOSPITALIST NOTIFIED. EEG DONE THIS MORNING. FAMILY HAS BEEN UPDATED ON PT CONDITION. PT RESTING AT THIS TIME WITH EYES CLOSED.
[2020-07-13] VITALS (136 sets, daily range): BP systolic 95–155; BP diastolic 60–90
--- NOTE | 2020-07-13 05:09 | NUR ---
PATIENT WAS BREATH STACKING AND BUCKING THE VENT WHEN I CAME ON. PATIENT'S PROPOFOL AND FENTANYL WERE TITRATED UNTIL PATIENT WAS NO LONGER BREATH STACKING. PATIENT RESTED WELL LAST NIGHT WITH NO OTHER ACUTE PROBLEMS AT THIS TIME.
--- NOTE | 2020-07-13 09:47 | NUR ---
Nutrition: Pt now NPO x 6 days. No nutrition started but care continues. REC Start Vital AF to reach 50 mL/hr if Feeding pump available. Otherwise suggest Vital HP 5 cartons daily via gravity drip.
--- NOTE | 2020-07-13 14:24 | NUR ---
chart review. unable to visit with taras rt remains on vent. arun visited with porsche via phone call, she requested to have md call here again rt some question, cm sent referral to med assist rt question about medicaid. " he has red white and blue card but not any other cards for insurance. thank you for checking on me, i go to [employer] and i have friend sitting with me at home so can try keep my mind ok. would like to face time and see taras face please. call anytime."/ porsche. arun passed on information to bedside nurse and md. will cont following as needed for dc needs.
[2020-07-14] VITALS (109 sets, daily range): BP systolic 100–147; BP diastolic 64–92
[2020-07-14 06:18] LABS: HEMOGLOBIN 8.7 gm/dL (14.0-18.0); MCH 27.4 pg (26.0-34.0); MCHC 32.3 g/dL (28.0-37.0); MCV 84.7 fL (80.0-100.0); RBC 3.19 mil/uL (4.50-6.00); RDW 14.3 % (10.5-14.5); WBC 11.3 thou/uL (4.0-11.0)
[2020-07-14 06:45] LABS: CALCIUM 8.1 mg/dL (8.5-10.1); POTASSIUM 4.4 mmol/L (3.5-5.1)
--- NOTE | 2020-07-14 16:53 | NUR ---
ASSUMED CARE AT 0700. FAMILY VISTED THE PATIENT AND THEY WERE UPDATED AND EDUCATED ON PATIENT CONDITION AND PLAN OF CARE. DR. SCHAEFER SPOKE WITH FAMILY.
[2020-07-15] VITALS (63 sets, daily range): BP systolic 88–126; BP diastolic 53–88
[2020-07-15 04:45] LABS: CALCIUM 8.5 mg/dL (8.5-10.1); CREATININE 0.9 mg/dL (0.7-1.3)
[2020-07-15 04:47] LABS: POTASSIUM 4.4 mmol/L (3.5-5.1)
[2020-07-15 05:17] LABS: HEMOGLOBIN 9.3 gm/dL (14.0-18.0); MCH 27.5 pg (26.0-34.0); MCHC 32.1 g/dL (28.0-37.0); MCV 85.7 fL (80.0-100.0); RBC 3.38 mil/uL (4.50-6.00); RDW 14.9 % (10.5-14.5); WBC 16.7 thou/uL (4.0-11.0)
--- NOTE | 2020-07-15 06:47 | NUR ---
PATIENT'S STATUS DETERIORATED THROUGH THE NIGHT. PATIENT WAS TACHYPNIC AND HIS OXYGEN SATS STARTED TO DROP AROUND 0100 AFTER BEING CLEANED UP AND GIVEN A BATH. PATIENT HAD HAD WHAT APPEARED TO BE A SEIZURE AROUND 0030. PATIENT'S OXYGEN DROPPED AND WAS HAVING A DIFFICULT TIME RECOVERING. PATIENT'S SEDATION WAS INCREASED. THIS INITIALLY HELPED WITH HIS TACHYPNEA AND HIS O2 SATS. HOWEVER THE PATIENT THEN STARTED TO SLOWLY DROP HIS OXYGEN. PATIENT'S VENT SETTINGS WERE INCREASED TO 100% FIO2. PATIENT IS SATTING IN THE LOW 90S AND HIGH 80S.
--- NOTE | 2020-07-15 09:50 | NUR ---
0840- DR PAEZ HERE AT BEDSIDE. DR. PAEZ CALLED PT'S AND SPOKE WITH HER. DR PAEZ STATED IS NOT READY TO WITHDRAWL CARE AT THIS TIME AND WILL MAKE A DECISION ON THURSDAY. DR. PAEZ DID GIVE PT STATUS UPDATE AND INFORMED HER THAT PT WILL NOT RECOVER FROM THIS.
--- NOTE | 2020-07-15 19:24 | NUR ---
PT STILL REQUIRING VENTILATOR. PT'S SPO2 WAS CONSISTENTLY FALLING INTO THE 80'S TODAY AND PT WAS ALREADY AT 100% FIO2. RN SPOKE WITH DR DOBBINS AND DR DOBBINS STATED TO INCREASE PEEP FROM 5 TO 8. ONCE PEEP AT 8 , PT KEEP O2 SATS >90%. PT IS NOT PROGRESSING TOWARDS GOALS.
[2020-07-16] VITALS (25 sets, daily range): BP systolic 88–139; BP diastolic 58–85
[2020-07-16 02:14] LABS: CALCIUM 8.1 mg/dL (8.5-10.1); CREATININE 1.1 mg/dL (0.7-1.3); POTASSIUM 4.2 mmol/L (3.5-5.1)
[2020-07-16 07:08] LABS: HEMATOCRIT 27.4 % (42.0-52.0); HEMOGLOBIN 8.6 gm/dL (14.0-18.0); MCH 27.1 pg (26.0-34.0); MCHC 31.5 g/dL (28.0-37.0); RBC 3.19 mil/uL (4.50-6.00); RDW 15.1 % (10.5-14.5); WBC 18.2 thou/uL (4.0-11.0)
--- NOTE | 2020-07-16 14:24 | NUR ---
chart review. he cont to require vent and nutritional support. MD has spoken with and going to discuss with family about tx, not ready to make a decision yet per chart. will cont following as needed for dc needs. bedside nurse has provided with updates.
--- NOTE | 2020-07-16 16:28 | NUR ---
PT INTUBATED AND SEDATED, VENT SETINGS UNCHANGED. PT IS NEGATIVE FOR COUGH/GAG/CORNEA/DEEP PAIN STIMULUS. UNABLE TO DO MRI TODAY. DR SCHAEFER TO SPEAK WITH FAMILY ABOUT CODE STATUS. LOW GRADE FEVER, NON PHARMACOLOGICAL MEASURES TAKEN. NO BM, UOP IS ADEQUATE HOWEVER, DARK TEA COLORED WITH MANY CLOTS AND SEDIMENT. TOLERATING TUBE FEED. PT AND HAVE BEEN UPDATED AND EDUCATED ON CONDITION AND POC. WOULD LIKE TO CALL FAMILY MEMBERS TO COME SEE HIM TOMORROW TO SAY THEIR GOODBYES, SHE WILL NOT BE COMING TO THE HOSPITAL. LIKELY TO CHANGE TO PALLIATIVE CARE TOMORROW AFTERNOON. HOME IS GOING TO BE [facility], HAS MADE ARRANGEMENTS WITH THEM. PT NOT PROGRESSING TOWARDS POC.
[2020-07-17] VITALS (22 sets, daily range): BP systolic 94–120; BP diastolic 60–78
[2020-07-17 05:54] LABS: HEMOGLOBIN 8.4 gm/dL (14.0-18.0); MCH 26.9 pg (26.0-34.0); MCHC 31.1 g/dL (28.0-37.0); MCV 86.6 fL (80.0-100.0); RBC 3.12 mil/uL (4.50-6.00); RDW 15.3 % (10.5-14.5); WBC 15.4 thou/uL (4.0-11.0)
[2020-07-17 06:11] LABS: CALCIUM 7.9 mg/dL (8.5-10.1); POTASSIUM 4.8 mmol/L (3.5-5.1)
[2020-07-17 06:12] LABS: CREATININE 2.1 mg/dL (0.7-1.3)
--- NOTE | 2020-07-17 07:37 | NUR ---
SEE [facility] FOR ASSESSMENT. REMAINS UNRESPONSIVE EVEN IF PROPOFOL LIGHTENED, CONT WITH FENTANYL AND PROPOFOL PT WILL BECOME TACHYPNIC AND HIGH PEAK PRESSURES ON VENT. CONT TO OVERBREATH VENT, NO COUGH/GAG NOTED. REMAINS ON 100% ON VENT. NOT PROGRESSING TOWARD GOALS
--- NOTE | 2020-07-17 11:25 | NUR ---
RN ATTEMPTED TO REACH FAMILY MEMBERS TO DISCUSS POTENTIALLY COMING IN TODAY TO SEE THE PATIENT. RN REACHED OUT TWICE. NO ANSWERS FROM THE FAMILY. LEFT A VOICEMAIL WITH JUST THE CALL BACK NUMBER. NO SIGNIFICANT CHANGES FROM THE PT AT THIS TIME. GAG REFLEX IS PRESENT WHEN PROPOFOL IS TITRATED DOWN. PT IS CURRENTLY NOT PROGRESSING TOWARDS DISCHARGE.
--- NOTE | 2020-07-17 19:29 | NUR ---
PT WAS MADE COMFORT CARE AT 1700. PT WAS EXTUBATED AND GIVEN MORPHINE IV PUSH. PT AT 1717 07/17/20. GARY WAS NOTIFIED OF PT . PACKET WAS COMPLETED. PT DID NOT HAVE ANY BELONGINGS.
== END 2020-07-17 17:17 | DRG 246 ==
LOC: ER 10:55 → EROBS 13:08 → ICU 13:08 → TBACV 13:09 → ICU 13:33
PROVIDERS: Emergency Medicine; Hospitalist; Internal Medicine; Internal Medicine Pulmonary Disease; Pediatrics; ADMIT Internal Medicine; ATTEND Internal Medicine
PROC: 0BH17EZ Insertion of Endotracheal Airway into Trachea, Via Natural or Artificial Opening (ICD-10-PCS; principal; 2020-07-07)
PROC: 4A023N7 Measurement of Cardiac Sampling and Pressure, Left Heart, Percutaneous Approach (ICD-10-PCS; principal; 2020-07-07)
PROC: 027034Z Dilation of Coronary Artery, One Artery with Drug-eluting Intraluminal Device, Percutaneous Approach (ICD-10-PCS; principal; 2020-07-07)
PROC: 02HV33Z Insertion of Infusion Device into Superior Vena Cava, Percutaneous Approach (ICD-10-PCS; principal; 2020-07-07)
PROC: 5A1955Z Respiratory Ventilation, Greater than 96 Consecutive Hours (ICD-10-PCS; principal; 2020-07-07)
PROC: B211YZZ Fluoroscopy of Multiple Coronary Arteries using Other Contrast (ICD-10-PCS; principal; 2020-07-07)
PROC: 5A12012 Performance of Cardiac Output, Single, Manual (ICD-10-PCS; principal; 2020-07-07)
DX: I21.3 ST elevation (STEMI) myocardial infarction of unspecified site (principal); J96.01 Acute respiratory failure with hypoxia; N17.0 Acute kidney failure with tubular necrosis; K72.00 Acute and subacute hepatic failure without coma; G93.1 Anoxic brain damage, not elsewhere classified; E87.2 Acidosis; R57.0 Cardiogenic shock; I25.10 Atherosclerotic heart disease of native coronary artery without angina pectoris; I95.9 Hypotension, unspecified; I49.01 Ventricular fibrillation; E78.5 Hyperlipidemia, unspecified; R31.9 Hematuria, unspecified; R73.03 Prediabetes; Z66 Do not resuscitate; Z51.5 Encounter for palliative care; Z20.828 Contact with and (suspected) exposure to other viral communicable diseases; Z79.82 Long term (current) use of aspirin; Z79.899 Other long term (current) drug therapy; Z23 Encounter for immunization
CPT/HCPCS: 10203